=== PATIENT | male | born 1980 | race Caucasian/White ===

== ENCOUNTER 2018-08-26 16:52 | Inpatient (IN) | payer OTHER ==
[~2018-08-26] VITALS: Ht 182.9 cm; Wt 88.4 kg
[2018-08-26 17:00] VITALS: BP 147/81
[2018-08-26 17:11] LABS: URINE BILIRUBIN NEGATIVE (Negative); URINE BLOOD TRACE (Negative); URINE CLARITY CLEAR; URINE COLOR YELLOW; URINE GLUCOSE-RANDOM NEGATIVE (Negative); URINE KETONES NEGATIVE (Negative); URINE LEUKOCYTES-REFLEX 1+ (Negative); URINE NITRITE-REFLEX NEGATIVE (Negative); URINE PROTEIN TRACE (Negative); URINE SPECIFIC GRAVITY 1.025 (1.005-1.030); URINE UROBILINOGEN 0.2 E.U./dl (0.2-1.0)
[2018-08-26 17:18] LABS: ABSOLUTE BASOPHILS 0.1 thou/uL (0.0-0.2); ABSOLUTE EOSINOPHILS 0.1 thou/uL (0.0-0.7); ABSOLUTE LYMPHOCYTES 2.1 thou/uL (0.8-5.3); ABSOLUTE MONOCYTES 0.5 thou/uL (0.0-1.2); ABSOLUTE NEUTROPHILS 4.8 thou/uL (1.6-8.1); BASOPHILS 0.9 %; EOSINOPHILS 1.5 %; HEMATOCRIT 43.8 % (42.0-52.0); HEMOGLOBIN 14.8 gm/dL (14.0-18.0); LYMPHOCYTES 27.8 %; MCHC 33.7 g/dL (28.0-37.0); MPV 7.9 fl. (7.2-11.1); NUCLEATED RBCS 0 /100WBC; PLATELET COUNT* 243 thou/uL (150-400); POLYS 62.8 %; RBC 5.09 mil/uL (4.50-6.00); RDW-CV 15.6 % (10.5-14.5); WBC 7.7 thou/uL (4.0-11.0)
[2018-08-26 17:19] LABS: SQUAMOUS 0-3 Few /LPF (0-3)
[2018-08-26 17:20] LABS: URINE WBC-REFLEX >25 Many /HPF (0-5)
[2018-08-26 17:21] LABS: CASTS None Seen /LPF (None Seen); CRYSTALS None Seen /LPF (None Seen); MUCUS 4-6 Moderate strn/LPF (None Seen); URINE RBC 0-2 Rare /HPF (0-2)
[2018-08-26 17:29] LABS: CALCIUM 8.9 mg/dL (8.5-10.1); CREATININE 1.2 mg/dL (0.6-1.3)
[2018-08-26 17:33] LABS: ALBUMIN 3.8 g/dL (3.4-5.0); TOTAL BILIRUBIN 0.4 mg/dL (<0.1-1.0); TOTAL PROTEIN 8.3 g/dL (6.4-8.2)
[2018-08-26 20:29] VITALS: BP 134/75
[2018-08-26 20:30] VITALS: BP 115/62
[2018-08-27 04:28] LABS: ABSOLUTE EOSINOPHILS 0.3 thou/uL (0.0-0.7); ABSOLUTE LYMPHOCYTES 1.5 thou/uL (0.8-5.3); ABSOLUTE MONOCYTES 0.6 thou/uL (0.0-1.2); ABSOLUTE NEUTROPHILS 2.6 thou/uL (1.6-8.1); BASOPHILS 0.8 %; EOSINOPHILS 5.9 %; HEMATOCRIT 40.7 % (42.0-52.0); HEMOGLOBIN 13.5 gm/dL (14.0-18.0); LYMPHOCYTES 29.9 %; MCH 28.9 pg (26.0-34.0); MCHC 33.1 g/dL (28.0-37.0); MCV 87.5 fL (80.0-100.0); MONOCYTES 11.7 %; MPV 8.4 fl. (7.2-11.1); NUCLEATED RBCS 0 /100WBC; PLATELET COUNT* 172 thou/uL (150-400); POLYS 51.7 %; RBC 4.66 mil/uL (4.50-6.00); RDW-CV 15.5 % (10.5-14.5)
[2018-08-27 04:49] LABS: CALCIUM 8.2 mg/dL (8.5-10.1); CREATININE 1.1 mg/dL (0.6-1.3)
[2018-08-27 07:56] VITALS: BP 111/65
[2018-08-27 09:49] VITALS: BP 111/65
[2018-08-27 18:56] VITALS: BP 127/69
[2018-08-27 20:00] VITALS: BP 125/81
--- NOTE | 2018-08-27 20:57 | OP ---
[facility] [address] [place] [address] OPERATIVE REPORT Name: JUAN CARLOS MASSEY Room: [address] IN M.R.#: [id number] Admission: 08/26/18 Attend Phys: Patricio Mckeon MD Discharge: Date of : 76 Report #: [id number] THIS REPORT FOR: //name// CC: Patricio Mckeon [facility] physician/PCP DATE OF SERVICE: 08/27/2018 PREOPERATIVE DIAGNOSIS: Left proximal ureteral calculus. POSTOPERATIVE DIAGNOSIS: Left proximal ureteral calculus. PROCEDURES PERFORMED: 1. Cystoscopy with left retrograde pyelogram. 2. Left ureteroscopy with laser lithotripsy. 3. Basket stone extraction. 4. Left 4.8 x 28 double-J ureteral stent placement. SURGEON: González Mcgill M.D. ANESTHESIA: General endotracheal. BRIEF HISTORY: The patient is a 37-year-old male with a longstanding history of nephrolithiasis who presented to the [facility] with left-sided flank pain. CT imaging demonstrated the presence of a 7 x 7 mm left proximal ureteral calculus. After discussion of available management options, the patient elected ureteroscopy with laser lithotripsy, stone retrieval and stent placement. The risks of the procedure including the risks of bleeding, infection, damage to surrounding structures, need for additional procedures, and anesthetic risks were discussed with the patient and he wished to proceed. PROCEDURE IN DETAIL: The risks and benefits of surgery were discussed with the patient and he wished to proceed. Informed consent was obtained and the patient was transferred to the operating room where he was laid supine on the operating room table. After the induction of adequate general endotracheal anesthesia, the patient's legs were placed in a modified dorsal lithotomy position, taking care to pad all pressure points and avoid any hyperextension or hyperflexion of his joints. His genitalia were prepped and draped in the usual sterile fashion. He had previously received empiric antibiotics. A timeout was then performed to ensure correct patient and procedure. At this time, a 22-[place] Islander cystoscope sheath with a 30-degree lens was lubricated and advanced under direct vision and irrigation through the urethra and into the bladder. There were no anterior urethral abnormalities. The prostatic urethra was age appropriate and nonobstructive. The cystoscope was disarticulated and the bladder was drained. Cystoscopy was performed under direct vision [place] [address] OPERATIVE REPORT Name: JUAN CARLOS MASSEY Room: [address]#: [id number] Admission: 08/26/18 Attend Phys: Patricio Mckeon MD Discharge: Date of : 76 Report #: [id number] 30-degree and 70-degree lens. The patient's ureteral orifices were found to be in their normal anatomic location. Systematic panendoscopy revealed no gross bladder wall pathology. There were no papillary bladder tumors or suspicious mucosal lesions identified. At this time, a 5-[place] Islander Pollack catheter was placed into the patient's left ureteral orifice and a left retrograde pyelogram was performed. Contrast could be seen filling the distal, mid and proximal left ureter until it delineated a radiopaque filling defect consistent with the calculus previously observed on CT imaging. Contrast progressed beyond the stone and filled a mildly dilated left collecting system. At this time, a 0.038 ZIPwire was advanced into the left ureter and up into the kidney under fluoroscopic guidance. The cystoscope was removed and the wire was clamped to the drape as a safety wire. The cystoscope was reinserted and a second ZIPwire was advanced alongside the first until it was also seen to coil within the left collecting system under fluoroscopy. The cystoscope was disarticulated and the bladder was drained. The cystoscope was removed. An 01/10 navigator ureteral access sheath was then advanced over the working wire and into the proximal ureter under fluoroscopic guidance without difficulty. The inner cannula and wire were removed. A flexible ureteroscope was then advanced through the access sheath and into the proximal ureter where the patient's stone was encountered. The stone was spiculated and appeared impacted within the ureteral sidewall. A 200 micron laser fiber was advanced through the ureteroscope and laser lithotripsy was performed on the calculus, dusting it and generating some small fragments for extraction. A zero-tip nitinol basket was used to grasp and remove all basketable stone fragments through the access sheath without difficulty. After all basketable stone fragments had been removed, the ureteroscope was advanced to the kidney. Renoscopy was performed. There were no basketable stones or stone fragments within the left collecting system. The ureteroscope was then withdrawn the length of the ureter from the UPJ to the UVJ, withdrawing the access sheath concomitantly. Prior to withdrawing the ureteroscope entirely, a left retrograde pyelogram was repeated which demonstrated patency and integrity of the ureter and collecting system and delineated the collecting system for stent placement. The ureteroscope was removed. A 4.8 x 28 double-J ureteral stent was advanced over the safety wire and into position using a metal-tipped pusher. The wire was withdrawn, deploying the stent. A good coil of the stent was identified within the left renal pelvis under fluoroscopy and a good coil of the stent was identified under direct vision with the cystoscope in the bladder. The cystoscope was disarticulated and the bladder was drained. The patient's stone fragments were passed off the table for pathologic analysis. The patient's urethra was anesthetized with 2% lidocaine jelly and a B and O suppository was placed per rectum. The patient was then returned to a supine position, awakened from anesthesia, and transferred to the postoperative care unit in stable condition. The patient tolerated the procedure well. COMPLICATIONS: [place] [address] OPERATIVE REPORT Name: BRYSONJUAN CARLOS L Room: [address]#: [id number] Admission: 08/26/18 Attend Phys: Patricio Mckeon MD Discharge: Date of : 76 Report #: [id number] ESTIMATED BLOOD LOSS: Minimal. INTRAVENOUS FLUIDS: Crystalloid. DRAINS: Left 4.8 x 28 double-J ureteral stent. SPECIMENS: Left proximal ureteral calculus fragments. FINDINGS: 1. Normal urethra. 2. No gross bladder wall pathology. No papillary bladder tumors or suspicious mucosal lesions identified. 3. Left retrograde pyelogram demonstrating a radiopaque filling defect in the proximal ureter consistent with the calculus previously observed on CT imaging. 4. Left ureteroscopy demonstrating a spiculated, impacted left proximal ureteral stone, fragmented with laser lithotripsy and removed. 5. Left 4.8 x 28 double-J ureteral stent in good position by fluoroscopy and direct vision at the conclusion of the procedure. <ELECTRONICALLY SIGNED> By: González Mcgill MD 08/27/18 2057 1826 1959González Mcgill MD /nt
== END 2018-08-27 21:30 | disposition left against medical advice (07) | DRG 660 ==
LOC: M.ERS 16:52 → M.TBA-ER 18:07 → M.ORTHSURG 20:19
PROVIDERS: Physician Assistant; ADMIT Internal Medicine
PROC: BT1B1ZZ Fluoroscopy of Bladder and Urethra using Low Osmolar Contrast (ICD-10-PCS; principal; 2018-08-27)
PROC: 0TC78ZZ Extirpation of Matter from Left Ureter, Via Natural or Artificial Opening Endoscopic (ICD-10-PCS; principal; 2018-08-27)
PROC: 0T778DZ Dilation of Left Ureter with Intraluminal Device, Via Natural or Artificial Opening Endoscopic (ICD-10-PCS; principal; 2018-08-27)
DX: N20.1 Calculus of ureter (principal); K50.90 Crohn's disease, unspecified, without complications; N39.0 Urinary tract infection, site not specified; R91.8 Other nonspecific abnormal finding of lung field; F17.210 Nicotine dependence, cigarettes, uncomplicated; E86.0 Dehydration; Z53.21 Procedure and treatment not carried out due to patient leaving prior to being seen by health care provider; Z87.442 Personal history of urinary calculi; Z90.49 Acquired absence of other specified parts of digestive tract

== ENCOUNTER 2018-08-28 08:22 | Inpatient (IN) | payer OTHER ==
[~2018-08-28] VITALS: Ht 182.9 cm; Wt 86.2 kg
[2018-08-28 08:29] VITALS: BP 150/75
[2018-08-28 09:06] LABS: ABSOLUTE LYMPHOCYTES 1.4 thou/uL (0.8-5.3); ABSOLUTE MONOCYTES 0.9 thou/uL (0.0-1.2); BASOPHILS 0.2 %; EOSINOPHILS 0.1 %; HEMATOCRIT 43.5 % (42.0-52.0); HEMOGLOBIN 14.7 gm/dL (14.0-18.0); LYMPHOCYTES 9.9 %; MCH 29.1 pg (26.0-34.0); MCHC 33.7 g/dL (28.0-37.0); MCV 86.4 fL (80.0-100.0); MONOCYTES 6.5 %; MPV 8.9 fl. (7.2-11.1); NUCLEATED RBCS 0 /100WBC; PLATELET COUNT* 227 thou/uL (150-400); POLYS 83.3 %; RBC 5.04 mil/uL (4.50-6.00); RDW-CV 15.2 % (10.5-14.5); WBC 14.4 thou/uL (4.0-11.0)
[2018-08-28 09:17] LABS: PROTIME 10.3 Seconds (9.20-11.50)
[2018-08-28 09:23] LABS: ANION GAP 10 mmol/L (7-16); BUN 16 mg/dL (7-18); CALCIUM 8.6 mg/dL (8.5-10.1); CHLORIDE 106 mmol/L (98-107); CO2 27 mmol/L (21-32); CREATININE 1.2 mg/dL (0.6-1.3); GLUCOSE 117 mg/dL (70-99); POTASSIUM 4.1 mmol/L (3.5-5.1); SODIUM 143 mmol/L (136-145)
[2018-08-28 09:32] LABS: ALBUMIN 3.4 g/dL (3.4-5.0); ALKALINE PHOSPHATASE 98 U/L (46-116); LIPASE 74 U/L (73-393); NT-PRO BRAIN NAT PEPTIDE 167 pg/mL (<300); SGOT 21 U/L (15-37); SGPT 42 U/L (30-65); TOTAL BILIRUBIN 0.4 mg/dL (<0.1-1.0); TOTAL PROTEIN 7.7 g/dL (6.4-8.2); TROPONIN-I LEVEL <0.06 ng/mL (<0.06)
[2018-08-28 10:37] LABS: URINE BILIRUBIN NEGATIVE (Negative); URINE BLOOD 3+ (Negative); URINE CLARITY CLEAR; URINE COLOR YELLOW; URINE GLUCOSE-RANDOM NEGATIVE (Negative); URINE KETONES NEGATIVE (Negative); URINE LEUKOCYTES-REFLEX 1+ (Negative); URINE PROTEIN 1+ (Negative); URINE SPECIFIC GRAVITY <= 1.005 (1.005-1.030); URINE UROBILINOGEN 0.2 E.U./dl (0.2-1.0)
[2018-08-28 10:38] LABS: URINE NITRITE-REFLEX POSITIVE (Negative)
[2018-08-28 10:45] LABS: SQUAMOUS 0-3 Few /LPF (0-3); URINE RBC >20 Many /HPF (0-2); URINE WBC-REFLEX 6-15 Few /HPF (0-5)
[2018-08-28 10:46] LABS: BACTERIA-REFLEX 1-9 Few /HPF (None Seen); CASTS None Seen /LPF (None Seen); CRYSTALS None Seen /LPF (None Seen)
[2018-08-28 12:30] LABS: AMP/METHAMP Negative (Negative); BARBITURATES Negative (Negative); BENZODIAZEPINES Negative (Negative); COCAINE Negative (Negative); METHADONE Negative (Negative); OPIATES Negative (Negative); PCP Negative (Negative); THC Negative (Negative)
--- NOTE | 2018-08-28 14:52 | EKG ---
[place] [address] ELECTROCARDIOGRAM REPORT Name: JUAN CARLOS MASSEY Room: [place] [address] ADM IN .R.#: [id number] Admission: 08/28/18 Attend Phys: Jaja Rizo MD Discharge: Date of : 76 Report #: [id number] THIS REPORT FOR: //name// [facility] ED Test Date: 2018-08-28 Test Time: 08:41:01 Pat Name: JUAN CARLOS MASSEY Department: Room: [facility] Gender: M Shop Supervisor: : 1980 Requested By: Erich Stevens Order Number: [id number] MD: Ben Chaudhary Measurements Intervals Orr Rate: 65 P: 77 CO: 145 QRS: 94 QRSD: 102 T: 63 QT: 393 QTc: 409 Interpretive Statements Sinus rhythm Borderline right axis deviation No previous ECG available for comparison Electronically Signed On 08-28-2018 14:52:29 CDT by Ben Chaudhary [email or web address] <ELECTRONICALLY SIGNED> By: Ben Chaudhary MD, [facility] 08/28/18 1452 0841 0 Ben Chaudhary MD, FACC /EPI
[2018-08-28 15:06] VITALS: BP 158/94
[2018-08-28 15:59] VITALS: BP 153/91
[2018-08-28 20:00] VITALS: BP 131/84
[2018-08-29 07:18] VITALS: BP 118/80
[2018-08-29 12:07] LABS: HEMATOCRIT 37.5 % (42.0-52.0); HEMOGLOBIN 12.8 gm/dL (14.0-18.0); MCH 29.5 pg (26.0-34.0); MCHC 34.3 g/dL (28.0-37.0); MPV 8.2 fl. (7.2-11.1); RBC 4.36 mil/uL (4.50-6.00); RDW-CV 15.2 % (10.5-14.5); WBC 7.7 thou/uL (4.0-11.0)
[2018-08-29 12:23] LABS: CALCIUM 8.5 mg/dL (8.5-10.1); CREATININE 1.1 mg/dL (0.6-1.3); POTASSIUM 3.6 mmol/L (3.5-5.1)
[2018-08-29 16:29] VITALS: BP 141/67
[2018-08-29 20:12] LABS: URINE BILIRUBIN NEGATIVE (Negative); URINE BLOOD 3+ (Negative); URINE CLARITY CLEAR; URINE COLOR YELLOW; URINE GLUCOSE-RANDOM NEGATIVE (Negative); URINE KETONES NEGATIVE (Negative); URINE LEUKOCYTES-REFLEX TRACE (Negative); URINE NITRITE-REFLEX NEGATIVE (Negative); URINE PROTEIN 1+ (Negative); URINE UROBILINOGEN 0.2 E.U./dl (0.2-1.0)
[2018-08-29 20:15] VITALS: BP 122/77
[2018-08-29 20:19] LABS: CASTS None Seen /LPF (None Seen); CRYSTALS None Seen /LPF (None Seen); SQUAMOUS NONE SEEN /LPF (0-3); URINE RBC 0-2 Rare /HPF (0-2); URINE WBC-REFLEX >25 Many /HPF (0-5)
[2018-08-30] VITALS: BP 135/63
[2018-08-30 04:00] VITALS: BP 136/83
[2018-08-30 07:30] VITALS: BP 140/87
[2018-08-30 08:48] LABS: ABSOLUTE EOSINOPHILS 0.2 thou/uL (0.0-0.7); ABSOLUTE MONOCYTES 0.4 thou/uL (0.0-1.2); ABSOLUTE NEUTROPHILS 3.1 thou/uL (1.6-8.1); BASOPHILS 0.5 %; HEMATOCRIT 36.4 % (42.0-52.0); HEMOGLOBIN 12.4 gm/dL (14.0-18.0); LYMPHOCYTES 20.9 %; MCH 29.4 pg (26.0-34.0); MCHC 34.1 g/dL (28.0-37.0); MCV 86.1 fL (80.0-100.0); MONOCYTES 9.1 %; MPV 8.4 fl. (7.2-11.1); NUCLEATED RBCS 0 /100WBC; PLATELET COUNT* 142 thou/uL (150-400); POLYS 65.5 %; RBC 4.22 mil/uL (4.50-6.00); RDW-CV 15.4 % (10.5-14.5); WBC 4.8 thou/uL (4.0-11.0)
[2018-08-30 08:51] LABS: CALCIUM 8.3 mg/dL (8.5-10.1); POTASSIUM 3.7 mmol/L (3.5-5.1)
[2018-08-30] MEDS ORDERED: CIPRO500 MG PO (10:32)
[2018-08-30 10:33] VITALS: BP 140/87
[2018-08-30] MEDS ORDERED: NORCO 5-325 TA1 EAC1 PO (10:36)
== END 2018-08-30 11:00 | disposition home or self-care (01) | DRG 871 ==
LOC: M.ERS 08:22 → M.TBA-ER 10:25 → M.ORTHSURG 10:25
PROVIDERS: Family Medicine; Internal Medicine; Nurse Practitioner Adult Health; Urology; ADMIT Internal Medicine
DX: A41.9 Sepsis, unspecified organism (principal); J15.9 Unspecified bacterial pneumonia; N13.6 Pyonephrosis; K59.00 Constipation, unspecified; F17.210 Nicotine dependence, cigarettes, uncomplicated; Z90.49 Acquired absence of other specified parts of digestive tract; Z88.8 Allergy status to other drugs, medicaments and biological substances; Z91.19 Patient's noncompliance with other medical treatment and regimen

== ENCOUNTER 2018-09-17 20:22 | Emergency (ER) | payer OTHER ==
[~2018-09-17] VITALS: Ht 182.9 cm; Wt 86.2 kg
[~2018-09-17 20:22] MED LIST: CIPRO500 MG PO; NORCO 5-325 TA1 EAC1 PO
[2018-09-17 20:54] LABS: ABSOLUTE BASOPHILS 0.1 thou/uL (0.0-0.2); ABSOLUTE EOSINOPHILS 0.2 thou/uL (0.0-0.7); ABSOLUTE LYMPHOCYTES 2.2 thou/uL (0.8-5.3); ABSOLUTE MONOCYTES 0.7 thou/uL (0.0-1.2); ABSOLUTE NEUTROPHILS 4.9 thou/uL (1.6-8.1); BASOPHILS 0.9 %; EOSINOPHILS 2.4 %; HEMATOCRIT 43.7 % (42.0-52.0); HEMOGLOBIN 15.1 gm/dL (14.0-18.0); LYMPHOCYTES 27.2 %; MCHC 34.5 g/dL (28.0-37.0); MCV 86.9 fL (80.0-100.0); MONOCYTES 8.4 %; MPV 8.2 fl. (7.2-11.1); NUCLEATED RBCS 0 /100WBC; PLATELET COUNT* 216 thou/uL (150-400); POLYS 61.1 %; RBC 5.03 mil/uL (4.50-6.00); RDW-CV 14.9 % (10.5-14.5)
[2018-09-17 21:00] LABS: URINE BILIRUBIN NEGATIVE (Negative); URINE BLOOD NEGATIVE (Negative); URINE CLARITY CLEAR; URINE COLOR YELLOW; URINE GLUCOSE-RANDOM NEGATIVE (Negative); URINE KETONES NEGATIVE (Negative); URINE LEUKOCYTES-REFLEX TRACE (Negative); URINE NITRITE-REFLEX NEGATIVE (Negative); URINE PROTEIN NEGATIVE (Negative); URINE SPECIFIC GRAVITY 1.015 (1.005-1.030); URINE UROBILINOGEN 0.2 E.U./dl (0.2-1.0)
[2018-09-17 21:01] LABS: CALCIUM 9.3 mg/dL (8.5-10.1); CREATININE 1.1 mg/dL (0.6-1.3); POTASSIUM 3.7 mmol/L (3.5-5.1)
[2018-09-17 21:06] LABS: ALBUMIN 3.8 g/dL (3.4-5.0); TOTAL BILIRUBIN 0.4 mg/dL (<0.1-1.0); TOTAL PROTEIN 7.9 g/dL (6.4-8.2)
[2018-09-17 21:08] LABS: BACTERIA-REFLEX 1-9 Few /HPF (None Seen); CASTS None Seen /LPF (None Seen); SQUAMOUS 0-3 Few /LPF (0-3); URINE WBC-REFLEX 0-5 Rare /HPF (0-5)
[2018-09-17 21:09] LABS: AMORPHOUS PHOSPHATES Moderate /LPF (None Seen); MUCUS None Seen strn/LPF (None Seen); URINE RBC 0-2 Rare /HPF (0-2)
[2018-09-17] MEDS ORDERED: CIPRO500 MG PO (21:36)
[2018-09-17 21:48] VITALS: BP 149/78
== END 2018-09-17 21:48 | disposition home or self-care (01) ==
LOC: M.ERS 20:22
PROVIDERS: Physician Assistant
DX: N39.0 Urinary tract infection, site not specified (principal); K50.90 Crohn's disease, unspecified, without complications; F17.210 Nicotine dependence, cigarettes, uncomplicated; Z90.49 Acquired absence of other specified parts of digestive tract; Z87.442 Personal history of urinary calculi

== ENCOUNTER 2018-12-16 13:17 | Emergency (ER) | payer OTHER ==
[~2018-12-16] VITALS: Ht 182.9 cm; Wt 83.9 kg
[2018-12-16 13:33] LABS: URINE BILIRUBIN NEGATIVE (Negative); URINE BLOOD NEGATIVE (Negative); URINE CLARITY CLEAR; URINE COLOR YELLOW; URINE GLUCOSE-RANDOM NEGATIVE (Negative); URINE KETONES NEGATIVE (Negative); URINE LEUKOCYTES-REFLEX 1+ (Negative); URINE NITRITE-REFLEX NEGATIVE (Negative); URINE PROTEIN NEGATIVE (Negative); URINE UROBILINOGEN 0.2 E.U./dl (0.2-1.0)
[2018-12-16 13:40] LABS: BACTERIA-REFLEX 1-9 Few /HPF (None Seen); SQUAMOUS 0-3 Few /LPF (0-3); URINE RBC 0-2 Rare /HPF (0-2); URINE WBC-REFLEX 0-5 Rare /HPF (0-5)
[2018-12-16 13:41] LABS: CASTS None Seen /LPF (None Seen); CRYSTALS None Seen /LPF (None Seen); MUCUS None Seen strn/LPF (None Seen)
[2018-12-16 14:05] LABS: ABSOLUTE EOSINOPHILS 0.1 thou/uL (0.0-0.7); ABSOLUTE LYMPHOCYTES 1.1 thou/uL (0.8-5.3); ABSOLUTE MONOCYTES 0.4 thou/uL (0.0-1.2); ABSOLUTE NEUTROPHILS 2.3 thou/uL (1.6-8.1); BASOPHILS 0.6 %; EOSINOPHILS 2.5 %; LYMPHOCYTES 27.7 %; MCH 32.1 pg (26.0-34.0); MCHC 35.8 g/dL (28.0-37.0); MCV 89.5 fL (80.0-100.0); MONOCYTES 9.7 %; NUCLEATED RBCS 0 /100WBC; PLATELET COUNT* 188 thou/uL (150-400); POLYS 59.5 %; RBC 4.36 mil/uL (4.50-6.00); RDW-CV 13.9 % (10.5-14.5); WBC 3.9 thou/uL (4.0-11.0)
[2018-12-16 14:13] LABS: CALCIUM 9.2 mg/dL (8.5-10.1); CREATININE 1.1 mg/dL (0.6-1.3)
[2018-12-16 14:17] LABS: ALBUMIN 3.6 g/dL (3.4-5.0); TOTAL BILIRUBIN 0.2 mg/dL (<0.1-1.0); TOTAL PROTEIN 7.1 g/dL (6.4-8.2)
[2018-12-16] MEDS ORDERED: NORCO 5-325 TA1 EAC1 PO (14:46)
[2018-12-16] MEDS ORDERED: BACTRIM DS TAB1 EACH PO (14:46)
[2018-12-16] MEDS ORDERED: CIPRO500 MG PO (14:48)
[2018-12-16] MEDS ORDERED: IBUPROFEN 800800 M1 PO (17:11)
[2018-12-16 17:25] VITALS: BP 133/68
== END 2018-12-16 17:25 | disposition home or self-care (01) ==
LOC: M.ERS 13:17
PROVIDERS: Physician Assistant
DX: N39.0 Urinary tract infection, site not specified (principal); K50.90 Crohn's disease, unspecified, without complications; Z87.442 Personal history of urinary calculi; Z90.49 Acquired absence of other specified parts of digestive tract; Z88.6 Allergy status to analgesic agent; Z98.890 Other specified postprocedural states